=== PATIENT | male | born 1980 | race Caucasian/White ===

== ENCOUNTER 2017-04-14 17:15 | Emergency (ER) | payer BC, OTHER ==
[~2017-04-14] VITALS: Ht 193 cm; Wt 89.0 kg
[2017-04-14] MEDS ORDERED: HYDR-882 PO (19:42)
[2017-04-14] MEDS ORDERED: ACET325T14 PO (19:42)
[2017-04-14] MEDS ORDERED: IBUP200C8 PO (19:42)
[2017-04-14] MEDS ORDERED: LIDOCAINE 2%, 20ML INFIL ONE (20:00)
[2017-04-14] MEDS ORDERED: LIDOCAINE 1%, 10ML ONE (20:03)
[2017-04-14 21:15] VITALS: BP 124/74
== END 2017-04-14 21:34 | disposition home or self-care (01) ==
LOC: ED 21:10
DX: M79.2 Neuralgia and neuritis, unspecified (principal); B02.29 Other postherpetic nervous system involvement
CPT/HCPCS: 99284